=== PATIENT | female | born 1950 | race Caucasian/White ===

== ENCOUNTER → 2024-09-22 10:53 | Outpatient (REF) | payer MEDICARE, BC, SELFPAY | LOC: RAD 10:53 | PROVIDERS: ATTENDING PHYSICIAN Family Medicine | DX: R05.1 Acute cough (principal) | CPT/HCPCS: 71046 ==

== ENCOUNTER → 2025-02-11 06:31 | Outpatient (REF) | payer OTHER, SELFPAY | LOC: MRI 3T 06:31 | PROVIDERS: ATTENDING PHYSICIAN Physician Assistant Surgical; FAMILY PHYSICIAN Family Medicine | DX: M23.92 Unspecified internal derangement of left knee (principal); M25.562 Pain in left knee | CPT/HCPCS: 73721 ==

== ENCOUNTER → 2025-07-26 07:59 | Outpatient (REF) | payer OTHER, SELFPAY ==
[2025-07-26 09:20] LABS: Hematocrit 36.4 % (37.0-47.0); Hemoglobin 11.8 g/dL (12.0-16.0); Mean Corp Hgb Conc. 32.4 g/dL (33.0-37.0); Mean Corpuscular Volume 99.5 fL (81.0-99.0); Platelet Count 289 10^3/uL (130-400); Red Cell Dist. Width 12.5 % (11.5-14.5)
[2025-07-26 10:18] LABS: ALT (SGPT) 16 U/L (0-35); AST (SGOT) 24 U/L (14-36); Albumin 4.1 g/dl (3.5-5.0); Alkaline Phosphatase 44 U/L (38-126); Blood Urea Nitrogen 24 mg/dl (7-17); Calcium 9.9 mg/dl (8.4-10.2); Carbon Dioxide 27 mmol/L (22-30); Chloride 108 mmol/L (98-107); Glucose 98 mg/dl (70-99); HDL Cholesterol 40 mg/dl; LDL Cholesterol, Calculated 130 mg/dl; Potassium 4.6 mmol/L (3.5-5.1); Sodium 141 mmol/L (135-145); Total Protein 6.6 g/dl (6.3-8.2); Very Low Density Lipoprotein 27 mg/dl (0-30); eGFR 43.42
[2025-07-26 12:10] LABS: Vitamin D, 25-OH*** > 126 ng/mL (30-80)
[2025-07-26 13:00] LABS: Nucleated Red Blood Cells % 0 %
== END ==
LOC: REG 07:59
PROVIDERS: ATTENDING PHYSICIAN Family Medicine
DX: M17.11 Unilateral primary osteoarthritis, right knee (principal); M35.3 Polymyalgia rheumatica; E55.9 Vitamin D deficiency, unspecified
CPT/HCPCS: 36415; 80053; 80061; 82306; 85025

== ENCOUNTER → 2025-08-20 06:25 | Outpatient (REF) | payer OTHER, SELFPAY | LOC: HWRAD 06:25 | PROVIDERS: ATTENDING PHYSICIAN Family Medicine | DX: M17.11 Unilateral primary osteoarthritis, right knee (principal) | CPT/HCPCS: 77080 ==